=== PATIENT | female | born 1955 | race Hispanic/Latino ===

== ENCOUNTER → 2020-12-27 09:48 | Outpatient (CLI) | payer MEDICARE, SELFPAY | PROVIDERS: Visit Provider Urology | DX: R30.0 Dysuria (principal) | CPT/HCPCS: 87086 ==

== ENCOUNTER → 2020-12-27 10:21 | Outpatient (CLI) | payer MEDICARE, SELFPAY ==
--- NOTE | 2020-12-27 10:24 | DI.RAD.S_ITS ---
PROCEDURE: XR KUB INDICATIONS: Urinary calculi/retained stent TECHNIQUE: One view of the abdomen acquired. COMPARISON: [facility], CR, XR ABDOMEN 1 VIEW, 10/10/2020, 9:58. [facility], XA, SI URETERAL CATHETER OR STENT PLACEMENT, 12/22/2020, 10:45. [facility], XA, SI NEPHROSTOMY, 11/21/2020, 21:05. [facility], CR, XR RETROGRADE UROGRAPHY, 11/21/2020, 17:57. [facility], CT, CT KUB, 11/21/2020, 15:54. FINDINGS: Surgical changes and devices: Right double-J ureteral stent. The superior portion projects at the level of the L4 transverse process. Bowel: Bowel gas pattern is normal. Soft tissues: 2 calcifications in the region of the right kidney measuring 0.8 cm and 0.6 cm. No suspicious abdominal calcifications. Visualized solid organ contours appear normal in size. Bones: No suspicious bony lesions. IMPRESSION: Right double-J ureteral stent. The superior portion projects at the level of the L4 transverse process which may be slightly inferior to the renal pelvis compared to recent CT. This could also be due to positioning. Right kidney stones x2. Results were communicated with Niyah on behalf of Dr. Eusebio House at 11 a.m. Dictated by: Carlo Freitas M.D. on 12/27/2020 at 10:55 Approved by: Carlo Freitas M.D. on 12/27/2020 at 11:02
== END ==
PROVIDERS: Referring Provider Urology; Visit Provider Urology
DX: N20.0 Calculus of kidney (principal); Q62.5 Duplication of ureter; R30.0 Dysuria; N39.0 Urinary tract infection, site not specified; Z96.0 Presence of urogenital implants; Z86.19 Personal history of other infectious and parasitic diseases
CPT/HCPCS: 74018; 81002; 87086; 99214

== ENCOUNTER → 2021-01-24 11:20 | Outpatient (CLI) | payer MEDICARE, SELFPAY | PROVIDERS: Referring Provider Urology; Visit Provider Urology | DX: Z01.812 Encounter for preprocedural laboratory examination (principal); Z20.822 Contact with and (suspected) exposure to COVID-19; R30.0 Dysuria; N39.0 Urinary tract infection, site not specified; N20.0 Calculus of kidney; Q62.5 Duplication of ureter; Z86.19 Personal history of other infectious and parasitic diseases | CPT/HCPCS: 81002; 87077; 87086; 87186; 87635; 99214 ==

== ENCOUNTER 2021-01-27 07:51 | Day surgery (SDC) | payer MEDICARE, SELFPAY ==
[2021-01-25 15:07] VITALS: BMI 34.2
== END 2021-01-27 07:55 | disposition home or self-care (01) ==
PROVIDERS: PCP Family Medicine; Referring Provider Urology; Visit Provider Urology
DX: N20.0 Calculus of kidney (principal); Z53.09 Procedure and treatment not carried out because of other contraindication
CPT/HCPCS: 50590; J2250; J2405; J2704; J3010

== ENCOUNTER 2021-02-03 10:49 | Day surgery (SDC) | payer MEDICARE, SELFPAY ==
[2021-02-01 07:51] VITALS: BMI 34.2
[2021-02-03] MEDS: LACTATED RINGERS 1,000 ML 42 ML IV (11:05)
[2021-02-03 11:14] VITALS: BP 110/67; PULSE 69; RESP 20; TEMP 36.2; O2SAT 98; BMI 34.2
[2021-02-03 11:59] LABS: COVID19 -Nasal RAPID Negative (Negative)
[2021-02-03] MEDS: CEFAZOLIN 2 GM/20 ML SYRINGE IV (12:18)
--- NOTE | 2021-02-03 12:25 | SUR.OPER ---
Supine on eswl table and positioned by Rep Ita. head on pillow, arms padded with gelpad and positioned at patient's side. legs uncrossed.
[2021-02-03 12:58] VITALS: BP 109/54; PULSE 62; RESP 16; TEMP 37.3; O2SAT 94
--- NOTE | 2021-02-03 12:58 | P.OP_ITS ---
Procedure & Clinicians Procedure: Right extracorporeal shockwave lithotripsy Same procedure as scheduled: Yes Indications: This is a 65-year-old female who originally presented with an obstructing right ureteral calculus. 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 And eventually the urologist she was interacting with at the time could not access. She had a percutaneous nephrostomy tube placed. This was eventually internalized as a stent and a percutaneous nephrostomy tube as it turns out the stone that was in the ureter moved into the renal pelvis where there was another stone. Presents today for extracorporeal shockwave lithotripsy to treat her stones. Surgeon: Eusebio House Click Yes if Unassisted: Yes Anesthesia Type: General Operative Notes Findings: The stones appeared to be in the same position or at least juxtaposition which allowed for concurrent treatment. The stones received 2000 shocks at level 7 and 7-1/2. At 2000 shocks the stones appeared well fragmented and smudged out. The stent appeared to remain in good position. There were no other abnormalities noted. Closure Type: not applicable Specimen(s): none sent Prosthetic devices, grafts, tissues, transplants, or devices: None Estimated Blood Loss (mL): 0 Blood products transfused: none Procedure in detail: After informed consent was obtained, the patient was identified and brought to the operating room. She was then placed in a supine position on Lithotripter. Anesthesia was induced and maintained. After ensuring an adequate level of anesthesia the stone was positioned F 2 via the localization system via fluoroscopy. Shock waves were then delivered for a total of 2000 shocks with periodic imaging and really localization to ensure maximal energy delivery to the stone. At 2000 shocks the stone appeared to be well fragmented the Lithotripter head was rotated out and fluoroscopy performed this confirmed that the stone was well fragmented. At this point the patient was awakened having tolerated the procedure well. Patient was then transferred to the postanesthesia care unit having tolerated the procedure well patient is to be discharged to home and follow up in my office in 2-3 weeks with a KUB. The patient will strain her urine and save any fragments that she catches and bring to follow-up. There were no complications Complications: none Post-operative Condition: stable Disposition: PACU Plan for aftercare: Patient to be discharged home to follow up my office in 2-3 weeks with a KUB. Patient will strain her urine and save any fragments and bring them to follow- up.
[2021-02-03 13:03] VITALS: BP 101/56; PULSE 65; RESP 13; O2SAT 95
[2021-02-03 13:08] VITALS: BP 103/56; PULSE 65; RESP 16; O2SAT 96
[2021-02-03 13:23] VITALS: BP 98/44; PULSE 61; RESP 13; O2SAT 96
[2021-02-03 14:22] VITALS: BP 114/75; PULSE 65; RESP 16; TEMP 36.5; O2SAT 98
== END 2021-02-03 14:27 | disposition home or self-care (01) ==
PROVIDERS: PCP Family Medicine; Referring Provider Urology; Visit Provider Urology
PROC: (CPT 50590; principal; 2021-02-03 12:15)
DX: N20.1 Calculus of ureter (principal); N20.0 Calculus of kidney; Q62.5 Duplication of ureter; N39.0 Urinary tract infection, site not specified; Z20.822 Contact with and (suspected) exposure to COVID-19
CPT/HCPCS: 50590; 87635; J0690; J2250; J2405; J2704; J3010

== ENCOUNTER → 2021-02-23 12:04 | Outpatient (CLI) | payer MEDICARE, SELFPAY ==
--- NOTE | 2021-02-23 12:08 | DI.RAD.S_ITS ---
PROCEDURE: XR KUB INDICATIONS: Kidney stone TECHNIQUE: One view of the abdomen acquired. COMPARISON: [facility], XA, SI URETERAL CATHETER OR STENT PLACEMENT, 12/22/2020, 10:45. [facility], CR, XR KUB, 12/27/2020, 10:19. FINDINGS: Surgical changes and devices: Right double-J ureteral stent redemonstrated with the proximal stent appearing mildly further migrated distally with the tip now at the level of the inferior endplate of L4 and may be position within the proximal right ureter. Bowel: Bowel gas pattern is normal. Soft tissues: No suspicious abdominal calcifications. Visualized solid organ contours appear normal in size. Bones: No suspicious bony lesions. IMPRESSION: Possible further inferior migration of the proximal portion of the right ureteral stent which could be position within the proximal right ureter. If indicated, CT KUB could be performed. Dictated by: Carlton [facility] Interpreted: Jessica Barker MD on 02/23/2021 at 13:15 Transcribed by: ZOYA on 02/23/2021 at 13:19 Approved by: Jessica Barker M.D. on 02/23/2021 at 13:39
== END ==
PROVIDERS: PCP Family Medicine; Referring Provider Urology; Visit Provider Urology
DX: N20.1 Calculus of ureter (principal); Z96.0 Presence of urogenital implants
CPT/HCPCS: 74018

== ENCOUNTER → 2021-02-27 13:47 | Outpatient (CLI) | payer MEDICARE, SELFPAY ==
[2021-03-02 14:59] LABS: Ca oxalate dihydrate 20 % (.); Ca oxalate monohydr 70 % (.); Hydroxyapatite 10 % (.); Size 3x2 mm (.)
== END ==
PROVIDERS: PCP Family Medicine; Referring Provider Urology; Visit Provider Urology
DX: R30.0 Dysuria (principal); N20.0 Calculus of kidney; Q62.5 Duplication of ureter; Z96.0 Presence of urogenital implants; Z86.19 Personal history of other infectious and parasitic diseases
CPT/HCPCS: 52310; 81002; 82365; 87077; 87086; 87186

== ENCOUNTER → 2021-03-27 15:01 | Outpatient (CLI) | payer MEDICARE, SELFPAY | PROVIDERS: PCP Family Medicine; Visit Provider Urology | DX: R30.0 Dysuria (principal); N20.0 Calculus of kidney; R82.81 Pyuria; Q62.5 Duplication of ureter; Z86.19 Personal history of other infectious and parasitic diseases | CPT/HCPCS: 81002; 87077; 87086; 87186; 99214 ==

== ENCOUNTER → 2021-04-05 10:11 | Outpatient (CLI) | payer MEDICARE, SELFPAY ==
[2021-04-05 12:36] LABS: Appearance Urine UA CLEAR; Bilirubin Urine UA NEGATIVE (NEGATIVE); Color Urine UA YELLOW; Glucose Urine UA NEGATIVE (Negative); Ketones Urine UA NEGATIVE (NEGATIVE); Leukocyte Esterase Urine UA 2+ (NEGATIVE); Nitrite Urine UA NEGATIVE (Negative); Occult Blood Urine UA 1+ (Negative); Protein Urine UA NEGATIVE (Negative); Specific Gravity Urine UA 1.015 (1.000-1.035); Urobilinogen Urine UA 0.2 E.U./dL (0.2)
[2021-04-05 13:11] LABS: Bacteria Urine Few (2-10); Culture Indicated Urine Cult Not Indicated; RBC Urine 1-5/HPF (0-5/HPF); Squamous Epithelial Cell Urine 10-30 /HPF (0-5/HPF); WBC Urine 5-10/HPF (0-5/HPF)
== END ==
PROVIDERS: PCP Family Medicine; Referring Provider Urology; Visit Provider Urology
DX: N39.0 Urinary tract infection, site not specified (principal)
CPT/HCPCS: 81001

== ENCOUNTER → 2021-04-12 10:30 | Outpatient (CLI) | payer MEDICARE, SELFPAY ==
[2021-04-12 10:35] LABS: Appearance Urine UA CLEAR; Bilirubin Urine UA NEGATIVE (NEGATIVE); Color Urine UA YELLOW; Glucose Urine UA NEGATIVE (Negative); Ketones Urine UA NEGATIVE (NEGATIVE); Leukocyte Esterase Urine UA NEGATIVE (NEGATIVE); Nitrite Urine UA NEGATIVE (Negative); Occult Blood Urine UA 1+ (Negative); Protein Urine UA NEGATIVE (Negative); Specific Gravity Urine UA 1.015 (1.000-1.035); Urobilinogen Urine UA 0.2 E.U./dL (0.2); pH Urine UA 5.5 (4.5-8.0)
[2021-04-12 10:40] LABS: Bacteria Urine None Seen; Culture Indicated Urine Cult Not Indicated; RBC Urine 1-5/HPF (0-5/HPF); WBC Urine None Seen (0-5/HPF)
== END ==
PROVIDERS: PCP Family Medicine; Visit Provider Urology
DX: R30.0 Dysuria (principal); R82.81 Pyuria
CPT/HCPCS: 51701; 81001

== ENCOUNTER → 2021-04-21 12:58 | Outpatient (CLI) | payer MEDICARE, SELFPAY ==
--- NOTE | 2021-04-21 13:00 | DI.RAD.S_ITS ---
PROCEDURE: XR KUB INDICATIONS: kidney stones TECHNIQUE: One view of the abdomen acquired. COMPARISON: [facility], CR, XR KUB, 12/27/2020, 10:19. [facility], CR, XR KUB, 02/23/2021, 12:00. FINDINGS: Surgical changes and devices: None. Bowel: Bowel gas pattern is normal. Soft tissues: No suspicious abdominal calcifications. Visualized solid organ contours appear normal in size. Bones: No suspicious bony lesions. IMPRESSION: No definite radiopaque renal, ureteral or bladder calculi identified. Dictated by: Carlton Espinosa [facility] Interpreted: Saroj Rodgers MD on 04/21/2021 at 13:46 Approved by: Saroj Rodgers M.D. on 04/21/2021 at 17:15
[2021-04-21 14:52] LABS: Calcium 9.8 mg/dL (8.4-10.2); Uric Acid 4.9 mg/dL (2.5-6.2)
[2021-04-22 10:16] LABS: Parathyroid Hormone Int 75 pg/mL (15-65)
== END ==
PROVIDERS: PCP Family Medicine; Referring Provider Urology; Visit Provider Urology
DX: N20.0 Calculus of kidney (principal)
CPT/HCPCS: 36415; 74018; 82310; 83970; 84550

== ENCOUNTER → 2021-04-28 09:43 | Outpatient (CLI) | payer MEDICARE, SELFPAY ==
[2021-04-29 09:38] LABS: Calcium 9.6 mg/dL (8.7-10.3); Parathyroid Hormone, Intact 78 pg/mL (15-65)
== END ==
PROVIDERS: PCP Family Medicine; Referring Provider Urology; Visit Provider Urology
DX: N20.0 Calculus of kidney (principal)
CPT/HCPCS: 36415; 82310; 83970

== ENCOUNTER → 2021-10-16 14:08 | Outpatient (CLI) | payer MEDICARE, SELFPAY | PROVIDERS: PCP Family Medicine; Visit Provider Urology | DX: N20.0 Calculus of kidney (principal); N39.0 Urinary tract infection, site not specified; B96.20 Unspecified Escherichia coli [E. coli] as the cause of diseases classified elsewhere; Q62.5 Duplication of ureter; E21.3 Hyperparathyroidism, unspecified; R31.29 Other microscopic hematuria; Z96.0 Presence of urogenital implants; Z86.19 Personal history of other infectious and parasitic diseases | CPT/HCPCS: 81002; 87077; 87086; 87186; 99214 ==

== ENCOUNTER → 2021-11-01 10:45 | Outpatient (CLI) | payer MEDICARE, SELFPAY ==
[2021-11-01 11:39] LABS: Appearance Urine UA CLEAR; Bilirubin Urine UA NEGATIVE (NEGATIVE); Color Urine UA YELLOW; Glucose Urine UA NEGATIVE (Negative); Ketones Urine UA NEGATIVE (NEGATIVE); Leukocyte Esterase Urine UA TRACE (NEGATIVE); Nitrite Urine UA NEGATIVE (Negative); Occult Blood Urine UA 2+ (Negative); Protein Urine UA NEGATIVE (Negative); Urobilinogen Urine UA 0.2 E.U./dL (0.2)
[2021-11-01 12:09] LABS: Bacteria Urine None Seen; Culture Indicated Urine Cult Not Indicated; RBC Urine None Seen (0-5/HPF); Squamous Epithelial Cell Urine 1-5 /HPF (0-5/HPF); Transitional Epi Cells Urine 0-1/HPF (0-5/HPF); WBC Urine 1-5/HPF (0-5/HPF)
== END ==
PROVIDERS: PCP Family Medicine; Referring Provider Urology; Visit Provider Urology
DX: N20.0 Calculus of kidney (principal); B96.20 Unspecified Escherichia coli [E. coli] as the cause of diseases classified elsewhere; N39.0 Urinary tract infection, site not specified; Z96.0 Presence of urogenital implants
CPT/HCPCS: 81001

== ENCOUNTER → 2021-12-25 12:51 | Outpatient (CLI) | payer MEDICARE, SELFPAY ==
--- NOTE | 2021-12-25 12:53 | DI.RAD.S_ITS ---
PROCEDURE: XR KUB INDICATIONS: Kidney Stones TECHNIQUE: One view of the abdomen acquired. COMPARISON: [facility], CR, XR KUB, 04/21/2021, 12:59. FINDINGS: Surgical changes and devices: None. Bowel: Bowel gas pattern is normal. Soft tissues: No suspicious abdominal calcifications. Visualized solid organ contours appear normal in size. Bones: No suspicious bony lesions. IMPRESSION: No obvious renal stone is seen on the current study. No bowel obstruction or gross free air. Dictated by: Saroj Rodgers M.D. on 12/25/2021 at 14:10 Approved by: Saroj Rodgers M.D. on 12/25/2021 at 14:12
== END ==
PROVIDERS: PCP Family Medicine; Referring Provider Urology; Visit Provider Urology
DX: N20.0 Calculus of kidney (principal); E21.3 Hyperparathyroidism, unspecified
CPT/HCPCS: 74018

== ENCOUNTER → 2022-01-02 09:22 | Outpatient (CLI) | payer MEDICARE, SELFPAY | PROVIDERS: PCP Family Medicine; Visit Provider Urology | DX: N20.0 Calculus of kidney (principal); N39.0 Urinary tract infection, site not specified; E21.3 Hyperparathyroidism, unspecified | CPT/HCPCS: 81002; 87077; 87086; 87186; 99214 ==

== ENCOUNTER → 2022-09-24 12:44 | Outpatient (CLI) | payer MEDICARE, SELFPAY ==
--- NOTE | 2022-09-24 12:46 | DI.RAD.S_ITS ---
PROCEDURE: XR KUB INDICATIONS: History of kidney stones TECHNIQUE: One view of the abdomen acquired. COMPARISON: [facility], CR, XR KUB, 12/25/2021, 14:08. [facility], CR, XR KUB, 04/21/2021, 12:59. FINDINGS: Surgical changes and devices: None. Bowel: Bowel gas pattern is normal. Soft tissues: No suspicious abdominal calcifications. Visualized solid organ contours appear normal in size. Bones: No suspicious bony lesions. IMPRESSION: No definite renal calculus is seen radiographically. Approved by: Kendall Santizo M.D. on 09/24/2022 at 21:53
== END ==
PROVIDERS: PCP Family Medicine; Referring Provider Urology; Visit Provider Urology
DX: N20.0 Calculus of kidney (principal)
CPT/HCPCS: 74018

== ENCOUNTER → 2022-10-10 15:03 | Outpatient (CLI) | payer MEDICARE, SELFPAY | PROVIDERS: PCP Family Medicine; Visit Provider Urology | DX: Q62.5 Duplication of ureter (principal); N39.0 Urinary tract infection, site not specified; N20.0 Calculus of kidney; E21.3 Hyperparathyroidism, unspecified; Z86.19 Personal history of other infectious and parasitic diseases | CPT/HCPCS: 51798; 81002; 87086; 99214 ==

== ENCOUNTER → 2023-04-01 13:36 | Outpatient (CLI) | payer MEDICARE, SELFPAY ==
--- NOTE | 2023-04-01 13:38 | DI.RAD.S_ITS ---
PROCEDURE: XR KUB INDICATIONS: Kidney stones. TECHNIQUE: One view of the abdomen acquired. COMPARISON: [facility], CT, CT KUB, 11/21/2020, 15:54. [facility], CR, XR KUB, 12/25/2021, 14:08. [facility], CR, XR KUB, 09/24/2022, 12:49. FINDINGS: Surgical changes and devices: None. Bowel: Bowel gas pattern is normal. Soft tissues: No kidney stones identified. No suspicious abdominal calcifications. Visualized solid organ contours appear normal in size. Bones: No suspicious bony lesions. IMPRESSION: No kidney stones identified. CT KUB could be considered for further evaluation. Dictated by: Carlo Freitas M.D. on 04/01/2023 at 16:58 Approved by: Carlo Freitas M.D. on 04/01/2023 at 17:00
== END ==
PROVIDERS: PCP Family Medicine; Referring Provider Urology; Visit Provider Urology
DX: N20.0 Calculus of kidney (principal)
CPT/HCPCS: 74018

== ENCOUNTER → 2023-04-04 14:45 | Outpatient (CLI) | payer MEDICARE, SELFPAY | PROVIDERS: PCP Family Medicine; Visit Provider Urology | DX: N39.0 Urinary tract infection, site not specified (principal); N20.0 Calculus of kidney; E21.3 Hyperparathyroidism, unspecified; Z86.19 Personal history of other infectious and parasitic diseases | CPT/HCPCS: 51798; 81002; 87077; 87086; 87186; 99214 ==

== ENCOUNTER → 2023-05-01 09:58 | Outpatient (CLI) | payer MEDICARE, SELFPAY | PROVIDERS: PCP Family Medicine; Visit Provider Urology | DX: N20.0 Calculus of kidney (principal); N39.0 Urinary tract infection, site not specified; R39.9 Unspecified symptoms and signs involving the genitourinary system; Z86.19 Personal history of other infectious and parasitic diseases | CPT/HCPCS: 51798; 81002; 87077; 87086; 87186; 99213 ==

== ENCOUNTER → 2023-05-21 13:26 | Outpatient (CLI) | payer MEDICARE, SELFPAY | PROVIDERS: PCP Family Medicine; Visit Provider Urology | DX: N39.0 Urinary tract infection, site not specified (principal); Q62.5 Duplication of ureter; N20.0 Calculus of kidney; Z86.19 Personal history of other infectious and parasitic diseases | CPT/HCPCS: 51798; 81002; 87086; 99214 ==